=== PATIENT | female | born 1975 | race Hispanic/Latino ===

== ENCOUNTER 2017-08-27 05:55 | Day surgery (SDC) | payer BC ==
[~2017-08-27] VITALS: Ht 152.4 cm; Wt 87.6 kg
[~2017-08-27 05:55] MED LIST: IBUP-2077 PO; SODIUM CHLORIDE 0.9% 1000ML 1,000 ML IV ONE
[2017-08-27 06:19] VITALS: BP 122/85
[2017-08-27] MEDS ORDERED: PROPOFOL 10 MG/ML 20ML VIAL IV ONE (07:22)
== END 2017-08-27 08:30 ==
LOC: ENDO 05:55 → DAH 05:55 → ENDO 08:30
PROVIDERS: ATTEND Internal Medicine Gastroenterology
DX: K31.7 Polyp of stomach and duodenum (principal); K29.50 Unspecified chronic gastritis without bleeding; B96.81 Helicobacter pylori [H. pylori] as the cause of diseases classified elsewhere; I10 Essential (primary) hypertension; E78.5 Hyperlipidemia, unspecified; Z98.890 Other specified postprocedural states; Z90.49 Acquired absence of other specified parts of digestive tract; Z68.37 Body mass index [BMI] 37.0-37.9, adult; Z79.899 Other long term (current) drug therapy; K80.20 Calculus of gallbladder without cholecystitis without obstruction; K21.9 Gastro-esophageal reflux disease without esophagitis
CPT/HCPCS: 36415; 43237; 43239; 84703; A4606; J2704; J7030; 43231